=== PATIENT | male | born 1960 | race Caucasian/White ===

== ENCOUNTER 2017-04-13 07:29 | Inpatient (IN) | payer OTHER ==
[~2017-04-13 07:29] MED LIST: NS IV ONE; POVIDONE-IODINE 20 ML in SODIUM CL IRRIG SOLUTION 500 ML IRR ONE; ROPIVACAINE 0.2% 80 MG, EPINEPHrine 0.2 MG, KETOROLAC TROMETHAMINE 30 MG in SYRINGE 0 ML IU ONE; TRANEXAMIC ACID IV ONE
[2017-04-13] MEDS ORDERED: ACETAMINOPHEN 325 MG TAB PO ONE (07:52)
[2017-04-13] MEDS ORDERED: DEXAMETHASONE 4 MG/ML VIAL IVP ONE (07:52)
[2017-04-13] MEDS ORDERED: ONDANSETRON DISINTEGRATING 4 MG TAB PO ONE (07:52)
[2017-04-13] MEDS ORDERED: ceFAZolin 2 GM/SWFI 2 GM/20 ML SYR IVP ONE (07:52)
[2017-04-13] MEDS ORDERED: FAMOTIDINE 20 MG TAB PO ONE (07:52)
[2017-04-13] MEDS ORDERED: GABAPENTIN 300 MG CAP PO ONE (07:52)
[2017-04-13] MEDS ORDERED: LIDOCAINE 1% 2 ML INJ ID PRN (07:54)
[2017-04-13] MEDS ORDERED: LR 1,000 ML IV ONE (07:54)
[2017-04-13] MEDS ORDERED: ONDANSETRON DISINTEGRATING 4 MG TAB ONE (08:36)
--- NOTE | 2017-04-13 08:45 | PDHPUP ---
History & Physical Update H&P update statement: This history and physical update is based on an assessment of the patient which was completed after admission or registration (within 24 hours), but prior to the surgery/procedure. H&P update: H&P reviewed & patient examined, no change in patient's condition since H&P completed
[2017-04-13] MEDS ORDERED: ceFAZolin 1 GM VIAL ONE (09:00)
--- NOTE | 2017-04-13 09:01 | PDANEPAE ---
ANE History of Present Illness Hip OA ANE Past Medical History - Cardiovascular History Hx Hypertension: No Hx Arrhythmias: No Hx Chest Pain: No Hx Coronary Artery / Peripheral Vascular Disease: No Hx CHF / Valvular Disease: No Hx Palpitations: No - Pulmonary History Hx COPD: No Hx Asthma/Reactive Airway Disease: No Hx Recent Upper Respiratory Infection: No Hx Oxygen in Use at Home: No Hx Sleep Apnea: No Sleep Apnea Screening Result - Last Documented: Negative - Neurologic History Hx Cerebrovascular Accident: No Hx Seizures: No Hx Dementia: No - Endocrine History Hx Diabetes: No - Renal History Hx Renal Disorders: No - Liver History Hx Hepatic Disorders: No - Neurological & Psychiatric Hx Hx Neurological and Psychiatric Disorders: Yes Neurological / Psychiatric History Comment: occ low back pain - Cancer History Hx Cancer: Yes Cancer History Comment: HX low grade bladder CA - Congenital Disorder History Hx Congenital Disorders: No - GI History Hx Gastrointestinal Disorders: No - Other Health History Other Health History: OA L hip - Chronic Pain History Chronic Pain: Yes (L hip) - Surgical History Prior Surgeries: surface tumor- bladder (low grade CA) ANE Review of Systems Review of Systems: - Exercise capacity METS (RN): 4 METS ANE Patient History - Allergies Allergies/Adverse Reactions: No Known Allergies Allergy (Verified 03/29/17 10:20) - Home Medications Home medications: home medication list seen and reviewed Home Medications: Acetaminophen [Tylenol 325mg (*)] 325 mg PO DAILY PRN 03/24/17 [Last Taken Unknown] Cholecalciferol Vit D3 [Vitamin D3 (*)] 1,000 units PO DAILY 03/24/17 [Last Taken Unknown] Glucosamine Sulfate [Glucosamine Sulfate 500 MG (*)] 500 mg PO DAILY 03/24/17 [ Last Taken Unknown] - NPO status NPO Since - Liquids (Date): 04/12/17 NPO Since - Liquids (Time): 21:00 NPO Since - Solids (Date): 04/12/17 NPO Since - Solids (Time): 18:00 - Anes Hx Anes Hx: no prior problems - Smoking Hx Smoking Status: Never smoked ANE Labs/Vital Signs - Vital Signs Blood Pressure: 149/86 Heart Rate: 63 Respiratory Rate: 16 O2 Sat (%): 95 Height: 185.42 cm Weight: 92.986 kg ANE Physical Exam - Airway Neck exam: FROM Mallampati Score: Class 2 - Pulmonary Pulmonary: no respiratory distress - Cardiovascular Cardiovascular: regular rate and rhythym - ASA Status ASA Status: I ANE Anesthesia Plan Anesthesia Plan: MAC, spinal
[2017-04-13] MEDS ORDERED: MIDAZOLAM 2 MG/2 ML VIAL IVP ONE (09:02)
[2017-04-13] MEDS ORDERED: PROPOFOL/EMULSION 500 MG/50 ML BOTTLE IV ONE ×3 (09:08→10:11)
[2017-04-13] MEDS ORDERED: fentaNYL 100 MCG/2 ML INJ ONE ×2 (09:51→11:23)
[2017-04-13] MEDS ORDERED: ONDANSETRON 4 MG/2 ML VIAL ONE (10:25)
[2017-04-13] MEDS ORDERED: HYDROmorphONE/DILAUDID 1 MG/ML INJ IVP PRN (10:33)
[2017-04-13] MEDS ORDERED: ONDANSETRON 4 MG/2 ML VIAL IVP PRN ×2 (10:33→11:11)
[2017-04-13] MEDS ORDERED: NALOXONE HCL 0.4 MG/ML INJ IVP PRN (10:33)
[2017-04-13] MEDS ORDERED: PROMETHAZINE HCL 25 MG/ML INJ IVP PRN ×2 (10:33→11:11)
--- NOTE | 2017-04-13 10:53 | POSTOPPROG ---
Post Op Note Date of Operation: 04/13/17 Surgeon: Rock Lopez Nutrition Professor: Anaebll Anesthesiologist: Dr. Gaudencio Trevino Anesthesia: IV Sedation, Spinal Post-op Diagnosis: Left hip severe degenerative arthritis Procedure: Left total hip arthroplasty Inf/Abcess present in the surg proc area at time of surgery?: No EBL: [id number]
[2017-04-13] MEDS ORDERED: NS 500 ML IV PRN (11:11)
[2017-04-13] MEDS ORDERED: TEMAZEPAM 15 MG CAP PO PRN (11:11)
[2017-04-13] MEDS ORDERED: DIPHENOXYLATE/ATROPINE LOMOTIL 1 TAB PO PRN (11:11)
[2017-04-13] MEDS ORDERED: oxyCODONE IR 5 MG TAB PO PRN (11:11)
[2017-04-13] MEDS ORDERED: BISACODYL 10 MG SUPP PR PRN (11:11)
[2017-04-13] MEDS ORDERED: PROMETHAZINE HCL 25 MG SUPPR PR PRN (11:11)
[2017-04-13] MEDS ORDERED: MAGNESIUM HYDROXIDE 30 ML UDCUP PO PRN (11:11)
[2017-04-13] MEDS ORDERED: CYCLOBENZAPRINE 10 MG TAB PO PRN (11:11)
[2017-04-13] MEDS ORDERED: POLYETHYLENE GLYCOL 3350 17 GM PKT PO PRN (11:11)
[2017-04-13] MEDS ORDERED: diphenhydrAMINE 25 MG CAP PO PRN (11:11)
[2017-04-13] MEDS ORDERED: ONDANSETRON DISINTEGRATING 4 MG TAB PO PRN (11:11)
[2017-04-13] MEDS ORDERED: traMADol 50 MG TAB PO PRN (11:11)
[2017-04-13] MEDS ORDERED: LACTULOSE 20 GM/30 ML UDCUP PO PRN (11:11)
[2017-04-13] MEDS ORDERED: METOCLOPRAMIDE 10 MG/2 ML VIAL IVP PRN (11:11)
--- NOTE | 2017-04-13 11:17 | POSTANESTH ---
Post Anesthetic Evaluation Cardiovascular Status: Normal, Stable Respiratory Status: Normal, Stable Level of Consciousness/Mental Status: Can Participate in Eval Pain Control: Adequate, Prn Tx Ordered Nausea/Vomiting Control: Adequate, Prn Tx Ordered Complications Possibly Related to Anesthesia: None Noted
[2017-04-13] MEDS: fentaNYL 100 MCG/2 ML INJ IVP PRN ×2 (11:26→11:33)
[2017-04-13] MEDS ORDERED: LR 1,000 ML IV SCH (11:30)
--- NOTE | 2017-04-13 11:45 | GOP ---
[f rep st] OPERATIVE REPORT DATE OF OPERATION: 04/13/2017 SURGEON: Rock Lopez MD INFORMATION STRATEGIST: Kory Story CVA. Lewis Tirado, PAC. ANESTHESIA: A combination of Marcaine, spinal, and IV sedation. ANESTHESIOLOGIST: Gaudencio Trevino MD. PREOPERATIVE DIAGNOSIS: Left hip severe degenerative arthritis. POSTOPERATIVE DIAGNOSIS: Left hip severe degenerative arthritis. PROCEDURE PERFORMED: Left total hip arthroplasty. Ceramic femoral head on highly cross-linked polye thylene cup liner. FINDINGS: ESTIMATED BLOOD LOSS: About 400 mL. DESCRIPTION OF PROCEDURE: The patient was given 2 g of IV Ancef preoperatively within 60 minutes of surgery. He also received IV tranexamic acid at a dose of 20 mg/kg. He was placed on the operating room table and given spinal anesthesia with Marcaine by Dr. Trevino. He was then placed supine and given IV sedation. A Juarez catheter was not used. He wore a MANDA stocking and SCD on the nonoper ative leg. He was rolled to the right lateral decubitus position. The position was secured with the pegboard table attachment. An axillary roll was used, and all pressure points were carefully padded . I was careful to lock his pelvis in a vertical position. His perineum was isolated with plastic a dhesive drapes. His left hip and left lower extremity were prepped with ChloraPrep. They were drape d free using sterile sheets, stockinette, and Ioban plastic adhesive drape. The [employer] time-out was performed to verify the correct surgical side and site and the correct patient identity. The [facility] time-out was also performed. I made a 5-6 inch straight oblique posterolateral hip skin incision. He had bulky muscular thigh and buttocks, requiring a slightly longer incision. Subcutaneous tissues were sharply divided, and hemo stasis was obtained using electrocautery. The fascia efrem was identified and split along the axis of its fibers. I curved posteriorly and proximally and split the fascia of the gluteus morena and susy ntly split the muscle fibers in line with their orientation. The Charnley self-retaining retractor w as inserted. His sciatic nerve was located, partially exposed, and protected throughout the procedur e. The external rotators and the posterior hip capsule were divided as separate layers at the base o f the femoral neck, tagged, and reflected posteriorly. A smooth 1/8-inch Steinmann pin was inserted vertically into the ilium, superior to the acetabulum. A 1/8-inch drill bit was inserted vertically into the greater trochanter and parallel to the first pin. The distance between the 2 was measured f or leg length reference. His femoral head was dislocated posteriorly. Severe degenerative changes w ere present on the femoral head. His femoral neck was osteotomized at the appropriate level and incl ination. I was careful to preserve all the posterior capsule and most of the anterior capsule. The remnant of his damaged labrum was excised. I prepared the femur first. This allowed me to senior software engineering manager the amount of natural femoral neck anteversion. This, in turn, allowed me to later determine the correct amount of cup anteversion. He had approxi mately 10-12 degrees of neck anteversion. The canal was opened laterally with a box chisel. I start ed with the starter reamer and then hand broached sequentially up to a size 7. I used the Accolade I I high offset broach as a trial stem in a size 7. I was careful to lateralize adequately. Appropriate retractors were inserted to expose the acetabulum. The acetabulum was reamed sequentiall y up to 55 mm. I selected a 56 mm Fabiola Tritanium solid back hemispherical shell. This was tapped securely into place in the proper degree of inclination and anteversion. I used the transverse acet abular ligament and other acetabular bony landmarks to help me properly orient the cup. I inserted a screw-in metal dome hole plug. I performed a series of trial reductions to determine length and stability. I concluded that the siz e 7 high offset stem with a -2.5 mm neck length and a 36 mm head with a flush or 0 degree lip trial l iner gave me the proper combination of appropriate length and good anterior and posterior stability. He was approximately 6 mm short preoperatively, and I was intentionally lengthening him. The flush or 0 degrees Fabiola X3 highly cross-linked polyethylene liner was inserted and tapped secu rely into place. I chose the [place] Accolade II stem in a size 7 with high offset. This was insert ed press-fit and was very tight. I did 1 final trial reduction and confirmed that the -2.5 mm neck l ength with a 36 mm head was the proper combination. The Fabiola Biolox Delta ceramic head with an ou tside diameter of 36 mm and a neck length of -2.5 mm was tapped securely onto the clean trunnion. Th e acetabulum was irrigated and cleaned, and the hip was reduced 1 final time. He had excellent anter ior and posterior stability and appropriate lengthening. Then 40 mL of the joint anesthetic cocktail was injected into the capsule, the deep musculature, and the subcutaneous tissues around the skin edges. The joint was thoroughly irrigated 1 final time with a dilute Betadine solution. His sciatic nerve was reinspected and looked unharmed. The external ro tators and the posterior hip capsule were repaired in separate layers with #2 FiberWire sutures throu gh drill holes in the greater trochanter. This provided a strong posterior capsular and external rot ator repair. The fascia efrem was closed first with 2 [id number] #2 FiberWire sutures followed b y a running #2 barbed Ethicon StrataFix PDO suture. The subcutaneous tissues were closed with a runn ing 0 barbed Ethicon StrataFix Monoderm suture. The skin was closed with a running 3-0 barbed Ethico n StrataFix Monoderm subcuticular suture. The skin edges were reapproximated and sealed with Dermabo nd glue. The wound was covered with a large Mepilex waterproof sterile dressing. A long-leg MANDA stocking and SCD were applied to his left lower extremity. He wore a stocking and SCD on the opposite leg during the procedure. An abduction pillow was placed between his knees. He was awakened from anesthesia and rolled to the supine position on his [facility]. He was taken to PACU in satisfactory condition. There were no recognized intraoperative complications. COUNTS: The sponge and needle count were correct on 2 occasions. I used a [place] Tritanium hemispherical solid-backed acetabular shell with an outside diameter of 56 mm. The liner was a [place] X3 flush or 0 degree highly cross-linked liner with an inside diameter of 36 mm. The femoral component was a high offset Accolade II stem and a size 7 and press-fit. The femoral head was a Fabiola Biolox Delta ceramic head with a -2.5 mm neck length and a 36 mm outside d iameter. Kory Story and Efren Tirado acted as surgical assistants. Their assistance was a medical necess ity for safe completion of the procedure. /[id number]/MODL
[2017-04-13] MEDS ORDERED: HYDROmorphONE/DILAUDID 1 MG/ML INJ ONE (11:47)
[2017-04-13] MEDS ORDERED: oxyCODONE IR 5 MG TAB ONE (12:07)
[2017-04-13] MEDS: ACETAMINOPHEN 325 MG TAB PO SCH ×3 (17:24→22:46)
[2017-04-13] MEDS: ceFAZolin 2 GM/DEXTROSE 100 ML IV SCH (17:34)
[2017-04-13] MEDS: TRANEXAMIC ACID 650 MG TAB PO SCH (18:52)
[2017-04-13 19:50] VITALS: RESP 16
[2017-04-13] MEDS: FAMOTIDINE 20 MG TAB PO SCH ×2 (21:36→22:43)
[2017-04-13] MEDS: SENNOSIDES/DOCUSATE SODIUM TAB PO SCH ×2 (21:36→22:44)
[2017-04-13] MEDS: ASPIRIN 325 MG TAB PO SCH ×2 (21:36→22:42)
[2017-04-14] MEDS: TRANEXAMIC ACID 650 MG TAB PO SCH ×2 (01:22→09:35)
[2017-04-14] MEDS: ceFAZolin 2 GM/DEXTROSE 100 ML IV SCH (01:22)
[2017-04-14] MEDS: KETOROLAC 30 MG/1 ML SDV IVP PRN ×2 (02:10→09:34)
[2017-04-14] MEDS: ACETAMINOPHEN 325 MG TAB PO SCH ×2 (05:41→12:40)
--- NOTE | 2017-04-14 07:39 | SOAPPROG ---
SOAP Progress Note Assessment/Plan: Assessment: Afebrile. Awake and alert. Mild pain. He has been up and walking in the room. His dressing is dry. Sciatic nerve intact. Postop films look excellent. Postop H&H are good. Plan: Up with physical therapy today. Discharged later today. 04/14/17 07:39 Objective: Vital Signs Temp Pulse Resp BP Pulse Ox 36.9 C 69 16 114/74 94 04/14/17 07:17 04/14/17 07:17 04/14/17 07:17 04/14/17 07:17 04/14/17 07:17 Laboratory Results 04/14/17 05:41 04/13/17 04/14/17 04/15/17 05:59 05:59 05:59 Intake Total 3240 200 Output Total 200 Balance 3040 200 ICD10 Worksheet Patient Problems: Problems Problem Status Onset Osteoarthritis of left hip Acute
--- NOTE | 2017-04-14 08:06 | GDS ---
[f rep st] DISCHARGE SUMMARY ADMISSION DIAGNOSIS: Left hip degenerative arthritis. DISCHARGE DIAGNOSIS: Left hip degenerative arthritis. OPERATION PERFORMED: 04/13/2017; left total hip arthroplasty. POSTOPERATIVE COMPLICATIONS: None. CONDITION ON DISCHARGE: Improved. DESCRIPTION OF HOSPITAL COURSE: The patient was admitted to the hospital on the morning of surgery. His admission CBC was normal. The same day, under a combination of Marcaine, spinal, and IV sedatio n, he underwent a left total hip arthroplasty. Postoperatively, he was treated with multimodal DVT p rophylaxis, including aspirin and early mobilization. On the first postoperative day, his hemoglobin and hematocrit were 13.2 and 38.5. He was seen by Physical Therapy and made rapid progress with amb ulation and stairs. DISPOSITION: The patient is discharged to his home. He will go to outpatient physical therapy in [facility]. He may progress to full weightbearing on the left as tolerated. Use an abduction pillow in bed for 3 weeks. Use MANDA stockings for 1 week. Continue aspirin 325 mg p.o. daily for 21 days. He has prescriptions for oxycodone and tramadol for pain control. I will see him back in the office on May 02, 2017. If there are any problems, he is to call me at the office. /[id number]/MODL
[2017-04-14] MEDS ORDERED: FERROUS SULFATE 140 MG TAB.ER PO SCH (09:00)
[2017-04-14] MEDS: SENNOSIDES/DOCUSATE SODIUM TAB PO SCH (09:36)
[2017-04-14] MEDS: FAMOTIDINE 20 MG TAB PO SCH (09:36)
[2017-04-14] MEDS: ASPIRIN 325 MG TAB PO SCH (09:36)
[2017-04-14 12:11] VITALS: BP 130/74; PULSE 68; TEMP 97.7; O2SAT 96
--- NOTE | 2017-04-14 12:31 | ASMTCMCOM ---
CM Note CM Note Notes: Pt medically stable for d/c, pt will follow up with outpatient PT. No CM d/c needs identified. Date Signed: 04/14/2017 12:30 PM Electronically Signed By:DULCE Ibarra
--- NOTE | 2017-04-14 14:27 | ASDISCHSUM ---
Discharge Information Plan Status:Home with No Needs Medically Cleared to Leave: Discharge Date:04/14/2017 01:02 PM CM D/C Disposition:Home, Routine, Self-Care ADT D/C Disposition:Home, Routine, Self-Care Projected Discharge Date:04/14/2017 01:02 PM Transportation at D/C: Discharge Delay Reason: Follow-Up Date:04/14/2017 01:02 PM Discharge Slot: Final Diagnosis: Placement Information Patient Contact Information Contact Name:EDWIGE Relationship: Address:[address] [place] [address] Work Phone: City:[place] Alternate Phone: [facility]/Zip Code:[place] [address] Email: Financial Information Financial Class:HMO and PPO Plans Primary Plan Desc:[employer] Primary Plan Number:[id number] Secondary Plan Desc: Secondary Plan Number: Assessment Information CM Network Director Assessment CJR Did you go to joint Answers: Yes class? CM Note CM Note Notes: Cash is planning to discharge home with the support of his family. He has his pre-op appointment this week and will discuss the need for physical therapy post-surgery. Cash is very active and does not anticipate needing additional services. Cash would like to discuss with Dr. Lopez the possibility of him discharging the same day as surgery. Cash scored a 12 on the RAPT scale, meaning he should discharge directly home. Date Signed: 04/05/2017 12:43 PM Electronically Signed By:Carla Sosa [facility] CM Progress Note CM Note CM Note Notes: Pt medically stable for d/c, pt will follow up with outpatient PT. No CM d/c needs identified. Date Signed: 04/14/2017 12:30 PM Electronically Signed By:DULCE Ibarra Intervention Information
== END 2017-04-14 13:02 | disposition home or self-care (01) | DRG 470 ==
LOC: F3N 07:29
PROVIDERS: ADMIT Orthopaedic Surgery; ATTEND Orthopaedic Surgery
PROC: 0SRB04Z Replacement of Left Hip Joint with Ceramic on Polyethylene Synthetic Substitute, Open Approach (ICD-10-PCS; principal; 2017-04-13 09:30)
DX: M16.12 Unilateral primary osteoarthritis, left hip (principal); Z85.51 Personal history of malignant neoplasm of bladder
CPT/HCPCS: 97116-GP; 97161-GP; 97165-GO; 97535-GO; J0171; J0690; J1100; J1170; J1885; J2250; J2405; J2704; J2795; J3010